=== PATIENT | male | born 1985 | race Caucasian/White ===

== ENCOUNTER 2016-10-08 13:02 | Emergency (ER) | payer OTHER ==
[~2016-10-08 13:02] MED LIST: AMOXICILLIN PO; BROMFED DM COU118 ML PO; FLEXERIL10 MG PO; IBUPROFEN800 MG PO; ILOTYCIN1 G1 OP; NO MEDICATIONS; PEN-VEE K PO; PERCOCET5/325 PO; PHENERGAN PO; TYLOX 5/500 CAP1 CAP PO; ULTRAM PO; VICODIN 5/500 T1 TAB PO
[2016-10-08 13:16] LABS: INFLUENZA A NEG (NEG); INFLUENZA B NEG (NEG)
== END 2016-10-08 13:42 | disposition home or self-care (01) ==
LOC: SED 13:02
PROVIDERS: Nurse Practitioner Family
DX: J02.9 Acute pharyngitis, unspecified (principal); R05 Cough; F17.210 Nicotine dependence, cigarettes, uncomplicated
CPT/HCPCS: 87651; 87804; 99282